=== PATIENT | male | born 1980 | race Two or more races ===

== ENCOUNTER → 2019-01-23 | Emergency (ER) | payer OTHER ==
[~2019-01-23] VITALS: Ht 182.9 cm; Wt 113.4 kg
[~2019-01-23] MED LIST: KETO10TA2 PO; TRAMADOL HCL50 MG PO; VALTREX1000 MG PO
== END | disposition home or self-care (01) ==
LOC: ER 23:15
DX: R07.89 Other chest pain (principal)

== ENCOUNTER 2025-03-31 10:25 | Emergency (ER) | payer OTHER ==
[~2025-03-31] VITALS: Ht 182.9 cm; Wt 104.3 kg
[2025-03-31] MEDS ORDERED: AMLODIPINE-OLM1 EAC1 PO (12:00)
[2025-03-31] MEDS ORDERED: NORVASC10 MG PO (12:00)
[2025-03-31] MEDS ORDERED: TENORMIN100 M1 PO (12:00)
[2025-03-31] MEDS ORDERED: BUSPIRONE HCL7.5 MG (12:01)
[2025-03-31] MEDS ORDERED: OLANZAPINE ODT10 MG PO (12:01)
[2025-03-31] MEDS ORDERED: TRAZODONE HCL150 MG (12:01)
[2025-03-31] MEDS ORDERED: LAMICTAL200 M1 PO (12:01)
[2025-03-31] MEDS ORDERED: PERCOGESIC EXT1 EACH PO (12:02)
[2025-03-31] MEDS ORDERED: METFORMIN HCL500 M3 PO (12:02)
[2025-03-31] MEDS ORDERED: HORIZANT300 MG PO (12:02)
[2025-03-31] MEDS ORDERED: CRESTOR40 MG (12:03)
[2025-03-31] MEDS ORDERED: MORPHINE SULFATE 2 MG/ML SYRINGE IV ONE (16:15)
[2025-03-31] MEDS ORDERED: ORPHENADRINE CITRATE 30 MG/ML AMPUL ONE (17:37)
[2025-03-31] MEDS ORDERED: ORPHENADRINE CITRATE 30 MG/ML AMPUL IM ONE (17:45)
[2025-03-31 18:24] LABS: BASO % 0.8 % (0.1-1.2); EOS # 0.35 (0.04-0.54); EOS % 4.5 % (0.7-7.0); LYMPH # 2.93 (1.18-3.74); LYMPH % 37.3 % (19.3-53.1); MEAN PLATELET VOLUME 11.00 fl (9.4-12.4); MONO # 0.57 (0.24-0.82); MONO % 7.3 % (4.7-12.5); NEUT # 3.92 (1.56-6.13); NEUT % 49.8 % (34.0-71.1); RED CELL DISTRIBUTION WIDTH 12.2 % (11.6-14.4)
[2025-03-31 18:59] LABS: ALT/SGPT 28.0 U/L (12-78); AST/SGOT 9.0 U/L (15-37); BILIRUBIN TOTAL 0.46 mg/dL (0.3-1.2); BUN CREA RATIO 17.0 (7.0-25.0); CREATININE SERUM 1.19 mg/dL (0.70-1.30); GFR 66.11; GLOBULINA 3.5 G/DL (2.4-3.5); OSMOLALITY SERUM 290.0 MOSM/KG (275-295)
[2025-03-31 19:12] LABS: GLUCOSE FASTING 274.0 mg/dL (65-100)
[2025-03-31] MEDS ORDERED: DEXAMETHASONE SODIUM PHOSP/PF 10 MG/ML VIAL IV ONE (22:30)
[2025-03-31] MEDS ORDERED: TRAMADOL HCL 50 MG TABLET PO ONE (22:30)
[2025-03-31] MEDS ORDERED: NORFLEX100MG PO (22:33)
[2025-03-31] MEDS ORDERED: DOLOGESIC-DF 51 EACH PO (22:33)
== END 2025-03-31 23:27 | disposition home or self-care (01) ==
LOC: ER 10:25
PROVIDERS: General Practice
DX: R07.89 Other chest pain (principal); W18.39XA Other fall on same level, initial encounter; Y93.89 Activity, other specified; Y92.012 Bathroom of single-family (private) house as the place of occurrence of the external cause; E11.65 Type 2 diabetes mellitus with hyperglycemia; Z79.84 Long term (current) use of oral hypoglycemic drugs; Z88.6 Allergy status to analgesic agent